=== PATIENT | female | born 1975 | race Caucasian/White ===

== ENCOUNTER 2019-12-30 14:41 | Emergency (ER) | payer OTHER ==
[2019-12-30 14:52] VITALS: BP 128/83
--- NOTE | 2019-12-30 15:53 | ER Document Report ---
HPI - HPI Patient complains to provider of: Requesting Suboxone Time Seen by Provider: 12/30/19 15:42 Onset: Other Onset/Duration: Worse Quality of pain: Throbbing Pain Level: 5 Context: 44-year-old female presented to ED stating that her doctor is not giving her enough Suboxone and she needs more today. I informed her that we are not allowed to give Suboxone or prescribe Suboxone that you need a special license for this. She states can you give her some Percocet. I told her no it actually has the opposite effect and I cannot prescribe or give that while she is on Suboxone Associated Symptoms: Other - Moaning states she needs Suboxone Exacerbated by: Movement Relieved by: Denies Similar symptoms previously: Yes Recently seen / treated by doctor: Yes - ROS ROS below otherwise negative: Yes - CONSTITUTIONAL Constitutional: DENIES: Fever, Chills - EENT EENT: DENIES: Sore Throat, Ear Pain, Nasal Drainage-Clear, Nasal Drainage- Purulent, Congestion, Eye problems - NEURO Neurology: DENIES: Headache, Weakness, Vision blurred, Dizzinesss / Vertigo - CARDIOVASCULAR Cardiovascular: DENIES: Chest pain - RESPIRATORY Respiratory: DENIES: Trouble Breathing, Coughing - GASTROINTESTINAL Gastrointestinal: REPORTS: Abdominal Pain. DENIES: Nausea, Patient vomiting, Diarrhea, Constipation, Black / Bloody Stools - URINARY Urinary: DENIES: Dysuria, Urgency, Frequency - REPRODUCTIVE Reproductive: DENIES: :, Postmenopausal, Abnormal bleeding / discharge - MUSCULOSKELETAL Musculoskeletal: DENIES: Extremity pain, Back Pain, Neck Pain, Swelling - DERM Skin Color: Normal Skin Problems: None Past Medical History - General Information source: Patient - Social History Smoking Status: Never Smoker Chew tobacco use (# tins/day): No Frequency of alcohol use: None Drug Abuse: None Lives with: Family Family History: Reviewed & Not Pertinent Patient has homicidal ideation: No - Past Medical History Cardiac Medical History: Reports: None Pulmonary Medical History: Reports: None EENT Medical History: Reports: None Neurological Medical History: Reports: None, Hx Migraine Endocrine Medical History: Reports: None Renal/ Medical History: Reports: None Malignancy Medical History: Reports: None GI Medical History: Reports: Other - Chronic pain abdomen Musculoskeletal Medical History: Reports None Skin Medical History: Reports None Psychiatric Medical History: Reports: None Traumatic Medical History: Reports: None Infectious Medical History: Reports: None Past Surgical History: Reports: Hx Abdominal Surgery, Hx Section - X 2, Hx Hysterectomy - Immunizations Hx Diphtheria, Pertussis, Tetanus Vaccination: Yes Vertical Provider Document - CONSTITUTIONAL Agree With Documented VS: Yes Exam Limitations: No Limitations General Appearance: Mild Distress - INFECTION CONTROL TRAVEL OUTSIDE OF THE [place] IN LAST 30 DAYS: No - NECK Neck: Normal Inspection, Supple - RESPIRATORY Respiratory: Breath Sounds Normal, No Respiratory Distress - CARDIOVASCULAR Cardiovascular: Regular Rate, Regular Rhythm - GI/ABDOMEN Gastrointestinal: Abdomen Soft, Abdomen Tender - States her abdomen is always painful, No Organomegaly, Normal Bowel Sounds - BACK Back: Normal Inspection - NEURO Level of Consciousness: Awake, Alert, Appropriate - DERM Integumentary: Warm, Dry, No Rash Course - Re-evaluation Re-evalutation: 12/30/19 23:29 Patient very angry because she could not get Suboxone in the emergency room. I explained to her that you had to have a special license to write Suboxone and only people that are licensed to prescribe Suboxone can write Suboxone. She stated could we give her some Percocet and explained to her that that is the opposite effect to the Suboxone she needed to follow-up with whoever is treating her chronic pain and not get prescriptions from other people when you are on Suboxone. - Vital Signs Vital signs: Temp Pulse Resp BP Pulse Ox 98.4 F 115 H 20 128/83 H 98 12/30/19 14:45 12/30/19 14:45 12/30/19 14:45 12/30/19 14:45 12/30/19 14:45 Discharge - Discharge Clinical Impression: Requesting Suboxone Condition: Stable Disposition: HOME, SELF-CARE Additional Instructions: As I have explained to you you have to have a special license to give or prescribe Suboxone I cannot give or prescribe Suboxone You can speak to your primary provider who is been given you your Suboxone and I will give you the name and number of [place] [facility]. FOLLOW-UP CARE: If you have been referred to a physician for follow-up care, call the physicians office for an appointment as you were instructed or within the next two days. If you experience worsening or a significant change in your symptoms, notify the physician immediately or return to the Emergency Department at any time for re-evaluation. Forms: Elevated Blood Pressure Referrals: LOCALMD,NO [NO LOCAL MD] - Follow up as needed LUMA WEBER MD [NO LOCAL MD] - Follow up as needed [facility] [Provider Group] - Follow up as needed
== END 2019-12-30 16:00 | disposition home or self-care (01) ==
LOC: ER 14:41
DX: Z76.0 Encounter for issue of repeat prescription (principal)
CPT/HCPCS: 99281